=== PATIENT | male | born 1990 | race Two or more races ===

== ENCOUNTER 2018-02-08 18:56 | Emergency (ER) | payer SELFPAY ==
[~2018-02-08] VITALS: Ht 185.4 cm; Wt 68.0 kg
[2018-02-08 19:14] VITALS: BP 111/63
[2018-02-08] MEDS ORDERED: DIPHTH,PERTUSS(ACELL),TET TOX 0.5 ML DISP.SYRIN. VAX IM ONE (19:30)
[2018-02-08] MEDS ORDERED: LIDOCAINE WITH 8.4% SOD BICARB 3 ML DISP.SYRIN. INJ ONE (19:45)
--- NOTE | 2018-02-09 15:14 | PHYS DOC ---
Past Medical History Past Medical History: No Pertinent History Past Surgical History: Other Additional Past Surgical Histo: RIGHT ANKLE Alcohol Use: Occasionally Drug Use: None Adult General Chief Complaint Chief Complaint: LACERATION/AVULSION HPI HPI Patient is a 27 year old [f__sex] who presents with [] Review of Systems Review of Systems Constitutional: Denies fever or chills [] Eyes: Denies change in visual acuity, redness, or eye pain [] HENT: Denies nasal congestion or sore throat [] Respiratory: Denies cough or shortness of breath [] Cardiovascular: No additional information not addressed in HPI [] GI: Denies abdominal pain, nausea, vomiting, bloody stools or diarrhea [] : Denies dysuria or hematuria [] Musculoskeletal: Denies back pain or joint pain [] Integument: Denies rash or skin lesions [] Neurologic: Denies headache, focal weakness or sensory changes [] Endocrine: Denies polyuria or polydipsia [] All other systems were reviewed and found to be within normal limits, except as documented in this note. Current Medications Current Medications Current Medications Medications (Trade) Dose Ordered Sig/Lili Start Time Stop Time Status Last Admin Dose Admin Diphtheria/ Tetanus/Acell Pertussis (Boostrix) 0.5 ml ONCE ONCE 02/08/18 19:30 02/08/18 19:31 DC 02/08/18 19:36 0.5 ML Lidocaine/Sodium Bicarbonate (Buffered Lidocaine 1%) 3 ml 1X ONCE 02/08/18 19:45 02/08/18 19:46 DC 02/08/18 19:45 3 ML Allergies Allergies Allergies Coded Allergies Type Severity Reaction Last Updated Verified Sulfa (Sulfonamide Antibiotics) Allergy Unknown 02/08/18 Yes Physical Exam Physical Exam Constitutional: Well developed, well nourished, no acute distress, non-toxic appearance. [] HENT: Normocephalic, atraumatic, bilateral external ears normal, oropharynx moist, no oral exudates, nose normal. [] Eyes: PERRLA, EOMI, conjunctiva normal, no discharge. [] Neck: Normal range of motion, no tenderness, supple, no stridor. [] Cardiovascular:Heart rate regular rhythm, no murmur [] Lungs & Thorax: Bilateral breath sounds clear to auscultation [] Abdomen: Bowel sounds normal, soft, no tenderness, no masses, no pulsatile masses. [] Skin: Warm, dry, no erythema, no rash. [] Back: No tenderness, no CVA tenderness. [] Extremities: No tenderness, no cyanosis, no clubbing, ROM intact, no edema. [] Neurologic: Alert and oriented X 3, normal motor function, normal sensory function, no focal deficits noted. [] Psychologic: Affect normal, judgement normal, mood normal. [] Current Patient Data Vital Signs Vital Signs Date Time Temp Pulse Resp B/P (MAP) Pulse Ox O2 Delivery O2 Flow Rate FiO2 02/08/18 19:14 99.0 97 16 111/63 (79) 97 Room Air 99.0 EKG EKG [] Radiology/Procedures Radiology/Procedures [] Course & Med Decision Making Course & Med Decision Making Pertinent Labs and Imaging studies reviewed. (See chart for details) [] Dragon Disclaimer Dragon Disclaimer This electronic medical record was generated, in whole or in part, using a voice recognition dictation system. 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
== END 2018-02-08 20:40 | disposition left against medical advice (07) ==
LOC: ER 18:56
DX: H92.02 Otalgia, left ear (principal); Z88.2 Allergy status to sulfonamides
CPT/HCPCS: 90471; 90715; 96372; 99284

== ENCOUNTER 2018-11-16 08:11 | Emergency (ER) | payer SELFPAY ==
[~2018-11-16] VITALS: Ht 185.4 cm; Wt 68.0 kg
[2018-11-16] MEDS ORDERED: NAPROXEN 500 MG TABLET PO STA (08:19)
[2018-11-16 08:20] VITALS: BP 118/81
[2018-11-16] MEDS ORDERED: CYCLOBENZAPRINE 10 MG TABLET. PO ONE (08:30)
[2018-11-16] MEDS ORDERED: HYDROcodone/APAP 5/325MG 1 TAB TABLET PO ONE (08:30)
--- NOTE | 2018-11-16 08:30 | PHYS DOC ---
Past Medical History Past Medical History: No Pertinent History Past Surgical History: Other Additional Past Surgical Histo: RIGHT ANKLE Alcohol Use: Occasionally Drug Use: None Adult General Chief Complaint Chief Complaint: BACK PAIN - NO INJURY HPI HPI Patient is a 28 year old female with no significant medical history who presents to the ED today complaining of 8 out of 10 entire spine pain for couple days. Patient will not define how many doses a couple days. Patient states the pain is worse with certain movements. Patient states denies any known injury. Denies any pain radiating to bilateral lower extremities denies any loss of bowel bladder function. Patient is requesting MRIs of his spine. Informed patient he does not meet criteria for emergency MRI Offered him x-rays. Interestingly asked patient what he did yesterday, he states he was busy he drove his mother around they went to a couple stores he walked with no issues. Review of Systems Review of Systems Constitutional: Denies fever or chills [] Eyes: Denies change in visual acuity, redness, or eye pain [] HENT: Denies nasal congestion or sore throat [] Respiratory: Denies cough or shortness of breath [] Cardiovascular: No additional information not addressed in HPI [] GI: Denies abdominal pain, nausea, vomiting, bloody stools or diarrhea [] : Denies dysuria or hematuria [] Musculoskeletal: spine pain Integument: Denies rash or skin lesions [] Neurologic: Denies headache, focal weakness or sensory changes [] All other systems were reviewed and found to be within normal limits, except as documented in this note. Current Medications Current Medications Current Medications Medications (Trade) Dose Ordered Sig/[facility] Start Time Stop Time Status Last Admin Dose Admin Acetaminophen/ Hydrocodone Bitart (Lortab 5/325) 2 tab 1X ONCE 11/16/18 08:30 11/16/18 08:31 DC 11/16/18 08:40 2 TAB Cyclobenzaprine HCl (Flexeril) 10 mg 1X ONCE 11/16/18 08:30 11/16/18 08:31 DC 11/16/18 08:40 10 MG Naproxen (Naprosyn) 500 mg 1X STAT 11/16/18 08:19 11/16/18 08:25 DC 11/16/18 08:40 500 MG Allergies Allergies Allergies Coded Allergies Type Severity Reaction Last Updated Verified Sulfa (Sulfonamide Antibiotics) Allergy Unknown 02/08/18 Yes Physical Exam Physical Exam Constitutional: Well developed, well nourished, no acute distress, non-toxic appearance. [] HENT: Normocephalic, atraumatic, bilateral external ears normal, oropharynx moist, no oral exudates, nose normal. [] Eyes: PERRLA, EOMI, conjunctiva normal, no discharge. [] Neck: Normal range of motion, no tenderness, supple, no stridor. [] Cardiovascular:Heart rate regular rhythm, no murmur [] Lungs & Thorax: Bilateral breath sounds clear to auscultation [] Abdomen: Bowel sounds normal, soft, no tenderness, no masses, no pulsatile masses. [] Skin: Warm, dry, no erythema, no rash. [] Back: No tenderness, no CVA tenderness. [] Extremities: No tenderness, no cyanosis, no clubbing, ROM intact, no edema. [] Neurologic: Alert and oriented X 3, normal motor function, normal sensory function, no focal deficits noted. [] Psychologic: Affect normal, judgement normal, mood normal. [] Current Patient Data Vital Signs Vital Signs Date Time Temp Pulse Resp B/P (MAP) Pulse Ox O2 Delivery O2 Flow Rate FiO2 11/16/18 08:40 16 11/16/18 08:20 97.8 79 118/81 (93) 97 Room Air 97.8 EKG EKG [] Radiology/Procedures Radiology/Procedures []PROCEDURE: THORACIC SPINE 3V Examination: 3 views of the thoracic spine History: History of muscle spasm Comparison: None available Findings: The visualized thoracic vertebral body heights are maintained. No obvious listhesis is evident. Impression: No acute osseous findings. DICTATED and SIGNED BY: BROOKLYN DESIR MD DATE: 11/16/18 0855 PROCEDURE: CERVICAL SPINE 2-3V Examination: 3 views of the cervical spine History: History of pain Comparison: None available Findings: The alignment of the cervical vertebral bodies grossly appears unremarkable. The facets are well aligned. Spinolaminar line is maintained. No evidence of prevertebral soft tissue swelling identified. The lateral masses of C1 are aligned with C2 vertebra. The C2 dens appears intact. Impression: No acute osseous findings. DICTATED and SIGNED BY: BROOKLYN DESIR MD DATE: 11/16/18 1031 PROCEDURE: LUMBAR SPINE 2-3V Examination: 2 views the lumbar spine History: History of muscle pain, spasm Comparison: None available Findings: The lumbar vertebral body heights are maintained. No evidence of listhesis. Impression: No acute osseous findings. DICTATED and SIGNED BY: BROOKLYN DESIR MD DATE: 11/16/18 1033 Course & Med Decision Making Course & Med Decision Making Pertinent Labs and Imaging studies reviewed. (See chart for details) This is a 28-year-old male patient presented to the ED today complaining his entire spine is hurting please see history of present illness. No known injury. No cauda equina syndrome symptoms. Requesting MRI informed patient he does not meet criteria for emergency MRI. X-rays of the thoracic, lumbar, cervical spine and negative for any acute findings. Paper copy as well as verbal results given to patient. They (i.e patient and significant other) started talking about going to a different hospital. Discharge to home. Provided neurosurgery for follow-up. Given prescription for naproxen and cyclobenzaprine as well as Medrol Dosepak. Dragon Disclaimer Dragon Disclaimer This electronic medical record was generated, in whole or in part, using a voice recognition dictation system. Departure Departure Impression: Primary Impression: Neck pain Additional Impressions: Thoracic spine pain Low back pain Disposition: HOME, SELF-CARE Condition: STABLE Referrals: NO PCP (PCP) MARCIO BRADFORD MD follow up in 1 week Patient Instructions: Back Exercises, [id number], Back Pain, Adult Additional Instructions: You were evaluated in the emergency room for spine pain. Your cervical spine, thoracic and lumbar spine x-rays are negative for any acute findings. We provided you a neurosurgeon, you can follow-up with them as an outpatient. Apply ice to the affected areas. Scripts Methylprednisolone (MEDROL) 4 Mg Tab.ds.pk 1 PKG PO UD, #1 PKG Prov: MUTUNGAREAL JOINT FILLER 11/16/18 Cyclobenzaprine Hcl (CYCLOBENZAPRINE HCL) 10 Mg Tablet 1 TAB PO TID, #30 TAB Prov: MUTUNGA,REAL JOINT FILLER 11/16/18 Naproxen (NAPROXEN) 500 Mg Tablet.dr 1 TAB PO BID, #14 TAB 0 Refills Prov: MUTUNGAREAL JOINT FILLER 11/16/18 Problem Qualifiers Additional Impressions: Low back pain Chronicity: acute Back pain laterality: bilateral Sciatica presence: without sciatica Qualified Codes: M54.5 - Low back pain REAL BLAS APRN Nov 16, 2018 08:30
--- NOTE | 2018-11-16 08:59 | RAD ---
Examination: 3 views of the thoracic spine History: History of muscle spasm Comparison: None available Findings: The visualized thoracic vertebral body heights are maintained. No obvious listhesis is evident. Impression: No acute osseous findings.
--- NOTE | 2018-11-16 10:36 | RAD ---
Examination: 3 views of the cervical spine History: History of pain Comparison: None available Findings: The alignment of the cervical vertebral bodies grossly appears unremarkable. The facets are well aligned. Spinolaminar line is maintained. No evidence of prevertebral soft tissue swelling identified. The lateral masses of C1 are aligned with C2 vertebra. The C2 dens appears intact. Impression: No acute osseous findings.
--- NOTE | 2018-11-16 10:38 | RAD ---
Examination: 2 views the lumbar spine History: History of muscle pain, spasm Comparison: None available Findings: The lumbar vertebral body heights are maintained. No evidence of listhesis. Impression: No acute osseous findings.
[2018-11-16] MEDS ORDERED: METH4TAB2 PO (10:58)
[2018-11-16] MEDS ORDERED: NAPR500T8 PO (10:58)
[2018-11-16] MEDS ORDERED: CYCL10TA2 PO (10:58)
== END 2018-11-16 11:05 | disposition home or self-care (01) ==
LOC: ER 08:11
DX: M54.2 Cervicalgia (principal); M54.5 Low back pain; M54.6 Pain in thoracic spine; Z88.2 Allergy status to sulfonamides
CPT/HCPCS: 72040; 72072; 72100; 99284